=== PATIENT | female | born 1955 | race Caucasian/White ===

== ENCOUNTER 2022-02-11 13:45 | Outpatient (RCR) | payer MEDICARE, BC, SELFPAY | END 2022-06-10 14:45 | disposition home or self-care (01) | PROVIDERS: PCP Family Medicine; Visit Provider Family Medicine | DX: M25.552 Pain in left hip (principal); Z51.89 Encounter for other specified aftercare | CPT/HCPCS: 97110; 97140; 97162 ==

== ENCOUNTER 2023-01-08 12:01 | Observation (INO) | payer MEDICARE, BC, SELFPAY ==
[2023-01-08] VITALS (8 sets, daily range): BP systolic 122–217; BP diastolic 74–113; PULSE 70–78; RESP 16–18; TEMP 36.1–36.8; O2SAT 98–99; BMI 23.0; BMI 23.9
--- NOTE | 2023-01-08 12:44 | CRLHL7_ITS ---
For Patients: As a result of the Cures Act, medical imaging exams and procedure reports are released immediately into your electronic medical record. You may view this report before your referring provider. If you have questions, please contact your health care provider. INDICATION: Chest pain, not otherwise described. TECHNIQUE: Two views COMPARISON: 11/05/2020. FINDINGS: Patient positioning: The patient is not rotated. Adequate inspiration. Heart and mediastinum: New double right heart border which may indicate left atrial enlargement in this patient who is status post mitral valve replacement. This can be assessed with greater accuracy with echocardiography. Lungs and pleural spaces: Upper lobe pulmonary venous diversion and diffuse bilateral reticular opacities consistent with interstitial edema indicative of congestive heart failure. Small bilateral pleural effusions. Bones and soft tissues: No acute findings. Clustered hemostatic surgical clips at the level of the suprasternal notch are again noted suggesting a prior thyroidectomy, for example. Please correlate with the patient`s surgical history. IMPRESSION: 1. Findings consistent with congestive heart failure. 2. New double right heart border consistent with interval left atrial enlargement compared to 11/05/2020 in this patient is status post mitral valve replacement. Dictated by Scar Joel MD @ 01/08/2023 2:00:10 PM (Electronically Signed)
[2023-01-08] MEDS: carvediloL 6.25 MG TABLET 3.125 MG PO ×2 (13:00→21:08)
[2023-01-08 13:04] LABS: Basophils Percent Auto 0.8 % (0.0-3.0); Eosinophils Percent Auto 37.1 % (0.0-7.0); Hematocrit 35.1 % (33.0-51.0); Hemoglobin* 11.6 gm/dL (12.0-16.0); Immature Granulocytes Pct Auto 0.2 %; Lymphocytes Percent Auto 7.9 % (20-44); Mean Corpuscular HGB Conc 33 gm/dL (32-36); Mean Corpuscular Hemoglobin 31 pg (26-34); Mean Corpuscular Volume 93 fL (80-100); Monocytes Percent Auto 7.1 % (0.0-11.0); Neutrophils Percent Auto 46.9 % (42.0-72.0); Platelet Count* 303 K/uL (140-440); RDW Coefficient of Variation % 14.7 % (11.5-15.5); Red Blood Count 3.77 m/uL (4.00-5.20); White Blood Count* 15.87 K/uL (4.50-11.00)
[2023-01-08 13:18] LABS: Chloride* 93 mmol/L (96-114); Potassium* 4.1 mmol/L (3.6-5.1); Sodium* 127 mmol/L (135-149)
[2023-01-08 13:20] LABS: Slide Review Reflex Yes
[2023-01-08 13:21] LABS: Anion Gap 9 mEq/L (7-15); Blood Urea Nitrogen* 14 mg/dL (7-30); Carbon Dioxide* 25 mmol/L (20-32); Creatinine* 0.7 mg/dL (0.5-1.5); Est. Creatinine Clearance* 43.92; Estimated Glomerular Filt Rate 94 ml/min
[2023-01-08 13:22] LABS: Calcium* 8.9 mg/dL (8.4-10.6); Glucose* 106 mg/dL (60-115)
--- NOTE | 2023-01-08 13:22 | ED.GENADULT ---
HPI - General Adult General Date Seen: 01/08/23 Chief complaint: Hypertension Stated complaint: High BP, L hand numb Time Seen by Provider: 01/08/23 12:37 Source: patient Mode of arrival: ambulatory Limitations: no limitations History of Present Illness HPI narrative: Patient is a 67-year-old female with history of hypertension presenting to the emergency [place] for hypertension and hand numbness. She states her blood pressure was normal this morning movement she rejected this afternoon it was elevated quite a bit so she came to the emergency department to be evaluated. She also notes she has been having hand numbness bilaterally today. She states the numbness started while she was washing dishes at a religious event. States she has had hand numbness before but usually does not last this long. Between that and the hypertension she decided to come and get evaluated. Initially denied chest pain but when asked again later she states she has some very mild left upper chest pain. Denies shortness of breath, lightheadedness, dizziness, weakness, headache, abdominal pain, fevers, chills. Related Data Home Medications Medication Instructions Recorded Confirmed azathioprine 50 mg tablet 50 mg PO DAILY 01/08/23 01/08/23 carvedilol 3.125 mg tablet 3.125 mg PO BID 01/08/23 01/08/23 Allergies Allergy/AdvReac Type Severity Reaction Status Date / Time pantoprazole [From Protonix] Allergy Severe angioedema Verified 01/08/23 12:35 barium sulfate Allergy Intermediate Back Pain Verified 01/08/23 12:35 hydroxychloroquine Allergy Intermediate Verified 01/08/23 12:35 amlodipine Allergy Unknown Verified 01/08/23 12:35 chloroquine Allergy Unknown Verified 01/08/23 12:35 clonidine Allergy Unknown Verified 01/08/23 12:35 diltiazem Allergy Unknown Verified 01/08/23 12:35 hydralazine Allergy Unknown Verified 01/08/23 12:35 metoprolol Allergy Unknown Verified 01/08/23 12:35 mycophenolate mofetil Allergy Unknown Verified 01/08/23 12:35 [From CellCept] lisinopril Allergy Severe Anaphylaxis Uncoded 01/08/23 12:35 chlorthalidone Allergy Unknown Uncoded 01/08/23 12:35 Review of Systems Status of ROS: Reports: 10 or more systems reviewed and unremarkable except as noted in History and below PFSH PFS Social History Smoking Status: Never smoker Do you use any of these nicotine containing products: None Second hand tobacco smoke exposure: No How often do you have a drink containing alcohol: never How often do you have six or more drinks on one occasion: Never AUDIT-C Alcohol total score: 0 Non-prescribed substance use: denies use Exam Narrative: Exam Narrative: Const: Well-nourished, Well-developed, in no distress Eyes: PERRL, no conjunctival injection, and symmetrical lids HENT: Atraumatic external nose and ears. Moist mucous membranes. Neck: Symmetric, trachea midline, No thyromegaly. CVS: RRR, No murmurs or gallops. Peripheral pulses 2+ and equal in all extremities RESP: Unlabored respiratory effort. Clear to auscultation bilaterally. GI: Nontender/Nondistended, No rebound or guarding. MSK:Extremities w/o deformity, Normal Active ROM Skin: Warm, Dry. No rashes or lesions. Neuro: Normal Muscle tone, No focal neurological deficits. Psych: Awake, Alert, & Oriented x3. Appropriate mood and affect. Const: Vital Signs, click to edit/add: Vital Signs - 24 hr 01/08/23 12:23 01/08/23 14:29 01/08/23 14:31 Temperature 96.9 F L Pulse Rate [Pulse Oximeter] 73 Respiratory Rate 16 Blood Pressure 170/95 H 184/91 H Blood Pressure [Ri ght Upper Arm] 217/113 H Pulse Oximetry 99 Oxygen Delivery Me thod Room Air 01/08/23 15:02 Temperature Pulse Rate [Pulse Oximeter] Respiratory Rate Blood Pressure 192/111 H Blood Pressure [Ri ght Upper Arm] Pulse Oximetry Oxygen Delivery Me thod Course Vital Signs Vital signs: Initial Vital Signs Temperature 96.9 F L 01/08/23 12:23 Temperature Source Temporal Artery Scan 01/08/23 12:23 Pulse Rate 73 01/08/23 12:23 Respiratory Rate 16 01/08/23 12:23 Blood Pressure 217/113 H 01/08/23 12:23 Blood Pressure Mean 147 H 01/08/23 12:23 Blood Pressure Position Sitting 01/08/23 12:23 Pulse Oximetry 99 01/08/23 12:23 Oxygen Delivery Method Room Air 01/08/23 12:23 Vital Signs Temperature 96.9 F L 01/08/23 12:23 Pulse Rate 73 01/08/23 12:23 Respiratory Rate 16 01/08/23 12:23 Blood Pressure 217/113 H 01/08/23 12:23 Pulse Oximetry 99 01/08/23 12:23 Oxygen Delivery Method Room Air 01/08/23 12:23 Temperature 96.9 F L 01/08/23 12:23 Pulse Rate 73 01/08/23 12:23 Respiratory Rate 16 01/08/23 12:23 Blood Pressure 192/111 H 01/08/23 15:02 Pulse Oximetry 99 01/08/23 12:23 Oxygen Delivery Method Room Air 01/08/23 12:23 Medications Administered Medications: Discontinued Medications Generic Name Dose Route Start Last Admin Trade Name Anil PRN Reason Stop Dose Admin Carvedilol 3.125 mg 01/08/23 13:00 01/08/23 13:00 Carvedilol 6.25 Mg Tablet PO 01/08/23 13:01 3.125 mg ONCE ONE Administration Meclizine HCl 25 mg 01/08/23 12:26 01/08/23 13:00 Meclizine Hcl 25 Mg Tablet PO 01/08/23 12:27 Not Given ONCE ONE Medical Decision Making MDM Narrative Medical decision making narrative: Patient is a 67-year-old female presenting for bilateral hand numbness and hypertension. She also admits to some mild chest pain starts when she got to the emergency department. States the hand numbness started while she was washing dishes and is improving. She has had issues with hand numbness in the past. Based on the description does sound more like possible carpal tunnel issue. Do not think it is stroke related. She is hypertensive here in [place] he has a chest pain will do a cardiac workup. EKG shows no concerning abnormalities. CBC is elevated 15. She does have a history of lupus and was previously on prednisone but finished taking it in October. Unsure what her baseline white blood cell count is. Her CMP does show a solid 127. This is not seen to be the cause of her symptoms and she has issues with low sodium in the past. Chest x-ray shows possible pulmonary edema which could be caused by CHF. She does have a history of mitral valve replacements is not currently on any diuretics. Troponins elevated at 0.12. Chest pain again is very mild and no signs of a STEMI on EKG. This could be demand ischemia from her possible CHF. I spoke to the hospitalist and they accepted her for admission Lab Data Labs: Lab Results 01/08/23 Range/Units 12:57 WBC 15.87 H (4.50-11.00) K/uL RBC 3.77 L (4.00-5.20) m/uL Hgb 11.6 L (12.0-16.0) gm/dL Hct 35.1 (33.0-51.0) % MCV 93 (80-100) fL MCH 31 (26-34) pg MCHC 33 (32-36) gm/dL RDW Coeff of [place] 14.7 (11.5-15.5) % Plt Count 303 (140-440) K/uL Neut % (Auto) 46.9 (42.0-72.0) % Lymph % (Auto) 7.9 L (20-44) % [place] % (Auto) 7.1 (0.0-11.0) % Eos % (Auto) 37.1 H (0.0-7.0) % Baso % (Auto) 0.8 (0.0-3.0) % Neut # (Auto) 7.40 H (1.7-7.0) K/uL Lymph # (Auto) 1.30 (0.90-2.90) K/uL [place] # (Auto) 1.10 H (0.00-0.90) K/UL Eos # (Auto) 5.90 H (0.00-0.50) K/uL Baso # (Auto) 0.10 (0.00-0.30) K/uL Abs Immat Gran (auto) 0.00 (0.00-0.30) K/uL Imm/Tot Granulo (auto) 0.2 % Diff Slide Review (Acceptable) Sodium 127 L (135-149) mmol/L Potassium 4.1 (3.6-5.1) mmol/L Chloride 93 L (96-114) mmol/L Carbon Dioxide 25 (20-32) mmol/L Anion Gap 9 (7-15) mEq/L BUN 14 (7-30) mg/dL Creatinine 0.7 (0.5-1.5) mg/dL Estimated Creat Clear 43.92 Estimated GFR 94 ml/min Glucose 106 (60-115) mg/dL Calcium 8.9 (8.4-10.6) mg/dL Troponin I 0.12 H* (0.01-0.04) ng/mL Imaging Data Chest x-ray: Radiologist's impression: 1. Findings consistent with congestive heart failure. 2. New double right heart border consistent with interval left atrial enlargement compared to 11/05/2020 in this patient is status post mitral valve replacement. Dictated by Scar Joel MD @ 01/08/2023 2:00:10 PM ECG Data Attestation: I personally reviewed and interpreted this ECG as follows: Prior ECG tracings: not available for review Interpretation: Who normal sinus rhythm with a rate of 70 beats per minute, normal intervals, normal axis, no ST or T-wave abnormalities Discharge Plan Discharge Clinical Impression: Elevated troponin Patient Disposition: Admitted As Observation Discharge Location: [facility] Condition: Stable
[2023-01-08 13:36] LABS: Troponin I* 0.12 ng/mL (0.01-0.04)
--- NOTE | 2023-01-08 16:34 | CRLHL7_ITS ---
For Patients: As a result of the Century Cures Act, medical imaging exams and procedure reports are released immediately into your electronic medical record. You may view this report before your referring provider. If you have questions, please contact your health care provider. INDICATION: Left hand numbness. TECHNIQUE: CT of the head without contrast. Coronal and sagittal reformats are included. COMPARISON: None. FINDINGS: No CT evidence of acute cortical infarct. No loss of barragan white matter differentiation. No hyperdense vessels to suggest intracranial thrombus. No acute intracranial hemorrhage. No mass effect or midline shift. No hydrocephalus or extra-axial collections. Patchy white matter hypoattenuation, typical for chronic microvascular ischemic change. 5 millimeter partially calcified extra-axial mass along the right posterior superior temporal convexity, compatible with a meningioma. No acute osseous abnormalities. Moderate ethmoid/maxillary sinus mucosal thickening. Paranasal sinuses and mastoid air cells are otherwise clear. Normal soft tissues. IMPRESSION: 1. No CT evidence of acute cortical infarct. No acute intracranial hemorrhage. No other acute intracranial findings. 2. A tiny meningioma along the right posterior superior temporal convexity. Please note that all CT scans at this facility use dose modulation, iterative reconstruction, and/or weight-based dosing when appropriate to reduce radiation dose to as low as reasonably achievable. Dictated by Joni Espinoza MD @ 01/08/2023 5:52:34 PM (Electronically Signed)
[2023-01-08] MEDS: TORSEMIDE 20 MG TABLET PO (16:38)
[2023-01-08] MEDS: POTASSIUM BICARB 25 MEQ EFFERVESCENT TAB PO (16:38)
[2023-01-08 17:23] LABS: Troponin I* 0.12 ng/mL (0.01-0.04)
--- NOTE | 2023-01-08 18:05 | PC.NURSE ---
Shift Summary 15-19: Patient pleasant and cooperative. BP elevated@ admission. following echo patient c/o left arm numbness and chest feeling funny, tele shows NSR. updated, new orders for trop and head CT. Independent in room, up in [place] walking with staff SBA in case patient becomes symptomatic.
--- NOTE | 2023-01-08 19:28 | P.IMHP_ITS ---
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 Patient reports that she has had elevated blood pressures. This has been a longstanding problem for her. She is unfortunately also had labile blood pressures and with blood pressure medications has been hypotensive. She was seen recently by her lead operator who noted a range of blood pressures from 207/108 to 91/53. She has been on carvedilol for treatment of blood pressure. Today her blood pressures were quite high with systolics over 200 again. She is also noted on and off hand numbness. It occurred today again. Involve the left hand more than the right hand. She thinks that involved all the fingers of her hand. As I am seeing her now she reports her hands are relatively normal in sensation and motion. She did not have arm numbness or pain in arms or legs or associated chest pain or neck pain or headache. She tells me that she has had hand numbness on and off occurring less than weekly. No obvious trigger for thi s. Seems to affect both hands. She has not had a fever. She does note that recently she has had some increase in exertional dyspnea without exertional chest pain. She has hyponatremia. This has been a problem for in the past attributable to chlorthalidone treatment so chlorthalidone was discontinued months ago. She has says her sodiums have been normal since then until today. She reports she did drink a lot of water today. Review of Systems Narrative: She reports no fever, cough, cold symptoms, chest pain, palpitations, syncope, nausea, vomiting, diarrhea, abdominal pain, urinary problems, extremity edema. [facility] Medical History (Updated 01/08/23 @ 19:51 by Rich Lindsay MD) FHx: total abdominal hysterectomy and bilateral salpingo-oophorectomy ?Z84.2 - Family history of other diseases of the genitourinary system (ICD- 10) Immunocompromised ?D84.9 - Immunodeficiency, unspecified (ICD-10) Hypertension ?I10 - Essential (primary) hypertension (ICD-10) Lupus nephritis ?M32.14 - Glomerular disease in systemic lupus erythematosus (ICD-10) Endocarditis ?I38 - Endocarditis, valve unspecified (ICD-10) Heart failure with preserved ejection fraction ?I50.30 - Unspecified diastolic (congestive) heart failure (ICD-10) Hyponatremia ?E87.1 - Hypo-osmolality and hyponatremia (ICD-10) Surgical History (Updated 01/08/23 @ 19:41 by Rich Lindsay MD) H/O mitral valve replacement ?Z95.2 - Presence of prosthetic heart valve (ICD-10) Family History (Updated 01/08/23 @ 19:42 by Rich Lindsay MD) Brother Diabetes High blood pressure Prostate cancer Father Diabetes Heart disease Sister High blood pressure Social History (Updated 01/08/23 @ 19:46 by Rich Lindsay MD) Narrative: Patient reports sister Latonya and brother ron of are healthcare power of trust and estates attorney. Code status is now DNR. She does not smoke. She does not drink alcohol. What is your current living situation?: I presently have a place to live Problems where you live: no known problems Problems where you live details: N/A In the past 12 months, utilities in danger of being shut off: no In past 12 months, lack of transportation kept you from medical appts, meetings, work, or getting things needed for daily living: no In the past 12 mos, have been you worried that your food would run out before you had money to buy more?: never true In the past 12 mos, the food you bought just didn't last and you didn't have money to buy more?: never true Highest level of school completed/degree received: Master's degree Smoking Status: Never smoker Do you use any of these nicotine containing products: None Second hand tobacco smoke exposure: No How often do you have a drink containing alcohol: never How often do you have six or more drinks on one occasion: Never AUDIT-C Alcohol total score: 0 Non-prescribed substance use: denies use Caffeine: No How often does anyone, including family, friends and others, physically hurt you : never How often does anyone, including family, friends and others, insult or talk down to you: never How often does anyone, including family, friends and others, threaten you with harm: never How often does anyone, including family, friends and others, scream or curse at you: never service: No Meds Home Medications and Allergies Home Medications Medication Instructions Recorded Confirmed Type azathioprine 50 mg tablet 50 mg PO DAILY 01/08/23 01/08/23 History carvedilol 3.125 mg tablet 3.125 mg PO BID 01/08/23 01/08/23 History Allergies Allergy/AdvReac Type Severity Reaction Status Date / Time pantoprazole [From Protonix] Allergy Severe angioedema Verified 01/08/23 12:35 barium sulfate Allergy Intermediate Back Pain Verified 01/08/23 12:35 hydroxychloroquine Allergy Intermediate Verified 01/08/23 12:35 amlodipine Allergy Unknown Verified 01/08/23 12:35 chloroquine Allergy Unknown Verified 01/08/23 12:35 clonidine Allergy Unknown Verified 01/08/23 12:35 diltiazem Allergy Unknown Verified 01/08/23 12:35 hydralazine Allergy Unknown Verified 01/08/23 12:35 metoprolol Allergy Unknown Verified 01/08/23 12:35 mycophenolate mofetil Allergy Unknown Verified 01/08/23 12:35 [From CellCept] lisinopril Allergy Severe Anaphylaxis Uncoded 01/08/23 12:35 chlorthalidone Allergy Unknown Uncoded 01/08/23 12:35 Exam Narrative: Exam Narrative: She is alert and appears in no distress. Eyes normal. Pupils equal round react benjamin to light. Extraocular movements are full. No facial asymmetry. Oropharynx is normal. Neck is supple without mass or adenopathy. Respirations are clear to auscultation except for a rare basilar crackle. Cardiovascular: S1, S2, regular rate and rhythm. No murmur gallop or rub. Abdomen: Bowel sounds active. Abdomen is soft without tenderness or mass. Extremities without significant edema. Intact peripheral pulses. Examination of the upper extremity shows intact strength motion and sensation to soft touch bilaterally. Const: Vital Signs, click to edit/add: Vital Signs - 24 hr 01/08/23 12:23 01/08/23 14:29 01/08/23 14:31 Temperature 96.9 F L Pulse Rate Pulse Rate [Pulse Oximeter] 73 Pulse Rate [Right Radial] Respiratory Rate 16 Blood Pressure 170/95 H 184/91 H Blood Pressure [Le ft Arm] Blood Pressure [Ri ght Upper Arm] 217/113 H Pulse Oximetry 99 Oxygen Delivery Me thod Room Air 01/08/23 15:02 01/08/23 15:17 01/08/23 16:43 Temperature Pulse Rate 73 Pulse Rate [Pulse Oximeter] Pulse Rate [Right Radial] 70 Respiratory Rate 18 Blood Pressure 192/111 H Blood Pressure [Le ft Arm] 192/97 H Blood Pressure [Ri ght Upper Arm] Pulse Oximetry 98 Oxygen Delivery Me thod Room Air Documenting provider has reviewed patient's vital signs: yes Hospitalist - H&P: Result Labs Labs: Short CBC 01/08/23 Range/Units 12:57 WBC 15.87 H (4.50-11.00) K/uL Hgb 11.6 L (12.0-16.0) gm/dL Hct 35.1 (33.0-51.0) % Plt Count 303 (140-440) K/uL BMP 01/08/23 12:57 Sodium 127 L Potassium 4.1 Chloride 93 L Carbon Dioxide 25 BUN 14 Creatinine 0.7 Glucose 106 Calcium 8.9 Cardiac Enzymes 01/08/23 01/08/23 Range/Units 12:57 16:42 Troponin I 0.12 H* 0.12 H* (0.01-0.04) ng/mL Imaging CT scan - head: Radiologist's impression: INDICATION: Left hand numbness. TECHNIQUE: CT of the head without contrast. Coronal and sagittal reformats are included. COMPARISON: None. FINDINGS: No CT evidence of acute cortical infarct. No loss of barragan white matter differentiation. No hyperdense vessels to suggest intracranial thrombus. No acute intracranial hemorrhage. No mass effect or midline shift. No hydrocephalus or extra-axial collections. Patchy white matter hypoattenuation, typical for chronic microvascular ischemic change. 5 millimeter partially calcified extra-axial mass along the right posterior superior temporal convexity, compatible with a meningioma. No acute osseous abnormalities. Moderate ethmoid/maxillary sinus mucosal thickening. Paranasal sinuses and mastoid air cells are otherwise clear. Normal soft tissues. IMPRESSION: 1. No CT evidence of acute cortical infarct. No acute intracranial hemorrhage. No other acute intracranial findings. 2. A tiny meningioma along the right posterior superior temporal convexity. Chest x-ray: Radiologist's impression: INDICATION: Chest pain, not otherwise described. TECHNIQUE: Two views COMPARISON: 11/05/2020. FINDINGS: Patient positioning: The patient is not rotated. Adequate inspiration. Heart and mediastinum: New double right heart border which may indicate left atrial enlargement in this patient who is status post mitral valve replacement. This can be assessed with greater accuracy with echocardiography. Lungs and pleural spaces: Upper lobe pulmonary venous diversion and diffuse bilateral reticular opacities consistent with interstitial edema indicative of congestive heart failure. Small bilateral pleural effusions. Bones and soft tissues: No acute findings. Clustered hemostatic surgical clips at the level of the suprasternal notch are again noted suggesting a prior thyroidectomy, for example. Please correlate with the patient`s surgical history. IMPRESSION: 1. Findings consistent with congestive heart failure. 2. New double right heart border consistent with interval left atrial enlargement compared to 11/05/2020 in this patient is status post mitral valve replacement. Assessment and Plan Assessment and plan (1) Heart failure with preserved ejection fraction: Problem comment: Clinically appears to have mild heart failure. Chest x-ray shows bilateral pleural effusions. Mitral stenosis significantly worse than previously. Status: Acute (2) Mitral stenosis: Problem comment: Has gotten worse in the last 5 months. Needs Cardiology follow-up Status: Acute (3) Hyponatremia: Problem comment: This was a problem previously due to chlorthalidone. Status: Acute (4) Hypertension: Problem comment: Labile blood pressures difficult to manage. Will start torsemide for managing volume/heart failure and blood pressure. Status: Acute (5) Elevated troponin: Problem comment: Likely due to heart failure exacerbation. Status: Acute (6) Immunocompromised: Problem comment: On azathioprine for lupus nephritis hysterectomy Status: Acute (7) Lupus nephritis: Problem comment: Renal function stable. Continue azathioprine. Status: Acute Plan Patient is admitted to the hospital for management of heart failure, hyponatremia, labile blood pressures and mitral stenosis. Initiate diuretic with torsemide for blood pressure control and volume control. Follow sodiums. Will need Cardiology follow-up for mitral valve disease. Total time spent today is 85 minutes, 55 minutes in coordination of care discussing with patient and other providers ongoing evaluation management of heart failure and mitral valve disease
[2023-01-08] MEDS: SODIUM CHLORIDE 0.9 % (FLUSH) 10 ML SYRINGE 5 ML IVF (21:08)
[2023-01-08] MEDS: azaTHIOprine 50 MG TABLET PO (21:08)
[2023-01-09 03:00] VITALS: BP 158/91; PULSE 76; RESP 18; TEMP 36.6; O2SAT 98
[2023-01-09 06:40] LABS: Basophils Percent Auto 0.8 % (0.0-3.0); Eosinophils Percent Auto 44.2 % (0.0-7.0); Hematocrit 34.4 % (33.0-51.0); Hemoglobin* 11.5 gm/dL (12.0-16.0); Immature Granulocytes Pct Auto 0.2 %; Lymphocytes Percent Auto 11.4 % (20-44); Mean Corpuscular HGB Conc 33 gm/dL (32-36); Mean Corpuscular Hemoglobin 31 pg (26-34); Mean Corpuscular Volume 91 fL (80-100); Monocytes Percent Auto 8.4 % (0.0-11.0); Platelet Count* 320 K/uL (140-440); RDW Coefficient of Variation % 14.6 % (11.5-15.5); Red Blood Count 3.77 m/uL (4.00-5.20); White Blood Count* 11.39 K/uL (4.50-11.00)
[2023-01-09 06:42] LABS: Slide Review Reflex No
[2023-01-09 07:01] LABS: Chloride* 99 mmol/L (96-114); Potassium* 3.8 mmol/L (3.6-5.1); Sodium* 133 mmol/L (135-149)
[2023-01-09 07:04] LABS: Anion Gap 7 mEq/L (7-15); Blood Urea Nitrogen* 16 mg/dL (7-30); Calcium* 9.1 mg/dL (8.4-10.6); Carbon Dioxide* 27 mmol/L (20-32); Creatinine* 0.9 mg/dL (0.5-1.5); Est. Creatinine Clearance* 43.92; Estimated Glomerular Filt Rate 69 ml/min; Glucose* 95 mg/dL (60-115)
--- NOTE | 2023-01-09 07:05 | PC.NURSE ---
Shift note: BPs 120 to 150ies, no c/o pain throughout the night, no SOB, no c/o numbness in her upper extremities, moves independently.
[2023-01-09 07:13] LABS: Troponin I* 0.12 ng/mL (0.01-0.04)
[2023-01-09 07:29] VITALS: PULSE 71
[2023-01-09 08:05] VITALS: BP 158/91; PULSE 66; RESP 16; TEMP 36.6; O2SAT 98
[2023-01-09] MEDS: carvediloL 6.25 MG TABLET 3.125 MG PO (08:16)
[2023-01-09] MEDS: POTASSIUM CHLORIDE 10 MEQ CAPSULE ER PO (08:16)
[2023-01-09] MEDS: TORSEMIDE 5 MG TABLET 10 MG PO (08:16)
[2023-01-09] MEDS: SODIUM CHLORIDE 0.9 % (FLUSH) 10 ML SYRINGE 5 ML IVF (08:17)
[2023-01-09 11:06] VITALS: BP 115/74; PULSE 70; RESP 18; TEMP 36.5; O2SAT 99
[2023-01-09] MEDS: azaTHIOprine 50 MG TABLET PO (12:37)
--- NOTE | 2023-01-09 13:50 | P.DS_ITS ---
DS: Providers Provider Date Seen: 01/09/23 Date of admission: 01/08/23 15:15 Primary care physician: Elizabeth Carrion MD Admitting Clinician: Rich Lindsay MD Attending Physician on discharge: Rich Lindsay MD Date of Discharge: 01/09/23 DS: Diagnosis Discharge Diagnosis (1) Heart failure with preserved ejection fraction: Status: Acute Problem details: Clinically appears to have mild heart failure. Chest x-ray shows bilateral pleural effusions. Mitral stenosis significantly worse than previously. Improved with torsemide (2) Mitral stenosis: Status: Acute Problem details: Has gotten worse in the last 5 months. Needs Cardiology follow-up (3) Hyponatremia: Status: Acute Problem details: This was a problem previously due to chlorthalidone. Improved overnight with torsemide (4) Elevated troponin: Status: Acute Problem details: Likely due to heart failure exacerbation. Patient declines aspirin (5) Lupus nephritis: Status: Acute Problem details: Renal function stable. Continue azathioprine. (6) Immunocompromised: Status: Acute Problem details: On azathioprine for lupus nephritis hysterectomy (7) Hypertension: Status: Acute Problem details: Labile blood pressures difficult to manage. Blood pressure significantly improved with torsemide. 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 Patient reports that she has had ongoing problems with elevated blood pressures. She is unfortunately also had labile blood pressures and with blood pressure medications has been hypotensive. She was seen recently by her product marketing coordinator who noted a range of blood pressures from 207/108 to 91/53. She has been on carvedilol for treatment of blood pressure. Today her blood pressures were quite high with systolics over 200 again. She is also noted on and off hand numbness. It occurred today again. Involve the left hand more than the right hand. She thinks that involved all the fingers of her hand. As I am seeing her now she reports her hands are relatively normal in sensation and motion. She did not have arm numbness or pain in arms or legs or associated chest pain or neck pain or headache. She tells me that she has had hand numbness on and off occurring less than weekly. No obvious trigger for this. Seems to affect both hands. She has not had a fever. She does note that recently she has had some increase in exertional dyspnea without exertional chest pain. She has hyponatremia. This has been a problem for in the past attributable to chlorthalidone treatment so chlorthalidone was discontinued months ago. She has says her sodiums have been normal since then until today. She reports she did drink a lot of water today. During hospital stay she was treated with torsemide. With this her sodium improved, her blood pressure improved and her heart failure improved. For her hyponatremia she will need outpatient follow-up. Probably will not need any specific further intervention other than my recommendation that she not drink excessive water. Recheck basic metabolic panel in clinic later this week. Echocardiogram showed worsening of her mitral stenosis. She is recommended to get a transesophageal echo and outpatient follow-up with the valve clinic at [facility]. She will call [phone] to set up those appointments on Wednesday. Troponin at 0.12 on admission and the same this morning. No chest pain or EKG changes. Suspected to be secondary to heart failure. Patient declines aspirin. Status at Discharge Functional status at discharge: independent ambulation Overall status at discharge: patient is back to baseline Time Spent with Patient Time attestation: Total time spent providing and/or coordinating discharge services: Time spent: Greater than 30 minutes Exam Narrative: Exam Narrative: She is alert appears in no distress. Respirations are clear to auscultation. No basilar crackles. Cardiovascular: S1, S2, 1 to 2/6 diastolic murmur. Abdomen is soft without tenderness. Extremities without edema. Const: Vital Signs, click to edit/add: Vital Signs - 24 hr 01/08/23 14:29 01/08/23 14:31 01/08/23 15:02 Temperature Pulse Rate Pulse Rate [Right Radial] Respiratory Rate Blood Pressure 170/95 H 184/91 H 192/111 H Blood Pressure [Le ft Arm] Pulse Oximetry Oxygen Delivery Me thod 01/08/23 15:17 01/08/23 16:43 01/08/23 19:00 Temperature 97 F L Pulse Rate 73 Pulse Rate [Right Radial] 70 78 Respiratory Rate 18 18 Blood Pressure Blood Pressure [Le ft Arm] 192/97 H 133/86 Pulse Oximetry 98 98 Oxygen Delivery Me thod Room Air Room Air 01/08/23 23:00 01/08/23 23:00 01/09/23 03:00 Temperature 98.2 F 98 F Pulse Rate Pulse Rate [Right Radial] 78 74 76 Respiratory Rate 18 18 18 Blood Pressure Blood Pressure [Le ft Arm] 122/74 158/91 H Pulse Oximetry 98 98 Oxygen Delivery Me thod Room Air Room Air 01/09/23 07:29 01/09/23 08:05 01/09/23 11:06 Temperature 97.9 F 97.7 F Pulse Rate 71 Pulse Rate [Right Radial] 66 70 Respiratory Rate 16 18 Blood Pressure Blood Pressure [Le ft Arm] 158/91 H 115/74 Pulse Oximetry 98 99 Oxygen Delivery Me thod Room Air Room Air Documenting provider has reviewed patient's vital signs: yes DS: Data Data Completed and Pending Labs on day of discharge: Labs from last 24 hours 01/09/23 01/08/23 06:15 16:42 WBC 11.39 H RBC 3.77 L Hgb 11.5 L Hct 34.4 MCV 91 MCH 31 MCHC 33 RDW Coeff of [place] 14.6 Plt Count 320 Neut % (Auto) 35.0 L Lymph % (Auto) 11.4 L [place] % (Auto) 8.4 Eos % (Auto) 44.2 H Baso % (Auto) 0.8 Neut # (Auto) 4.00 Lymph # (Auto) 1.30 [place] # (Auto) 1.00 H Eos # (Auto) 5.00 H Baso # (Auto) 0.10 Abs Immat Gran (auto) 0.00 Imm/Tot Granulo (auto) 0.2 Sodium 133 L Potassium 3.8 Chloride 99 Carbon Dioxide 27 Anion Gap 7 BUN 16 Creatinine 0.9 Estimated Creat Clear 43.92 Estimated GFR 69 Glucose 95 Calcium 9.1 Troponin I 0.12 H* 0.12 H* Discharge Plan Discharge Disposition: Home, Self-Care Date of Admission: 01/08/23 15:15 Attending Provider on Discharge: Rich Lindsay Primary Care Provider: Elizabeth Carrion Condition: Stable Anticipated Discharge Date/Time: 01/09/23 13:24 Discharge Medications: New potassium chloride 10 mEq Capsule, Extended Release 10 meq PO DAILYWM Qty: 30 0RF torsemide 10 mg tablet 10 mg PO QAM Qty: 30 2RF Continued azathioprine 50 mg tablet 50 mg PO DAILY carvedilol 3.125 mg tablet 3.125 mg PO BID Discharge Orders: Discharge Order (Routine); Ordered 01/09/23 Ordered By: Rich Lindsay Patient Education: Potassium Chloride (By mouth), Torsemide (By mouth), Hypertension (DC) Additional Instructions: You need an appointment with the Heart valve Clinic. You also need a trans esophageal echo. Please call [facility], , Wednesday morning to arrange these appointments. If you have difficulty making these appointments please call to speak with Dr. Shan Combs's nurse. Activity Level: Activity as Tolerated Discharge Diet: Regular Follow Up Appointments: Elizabeth Carrion MD [Primary Care Provider] - (Follow-up in 5-6 days for appointment and basic metabolic panel) Forms: [employer] Info Instructions
--- NOTE | 2023-01-09 14:26 | PC.NURSE ---
Discharge: Patient pleasant and cooperative. Up independently walking in halls, HR stable and denies any neurologic changes, such as numb hands, throughout shift. Vitals stable and WNL. Denies pain/SOB. IV removed with catheter intact. Discharge instructions and follow up reviewed, questions answered as needed. New medications reviewed. Patient discharge @ 1425, ambulated out, sister to rock picker at door to transport home.
== END 2023-01-09 14:25 | disposition home or self-care (01) ==
LOC: ED 12:55 → MEDSURG 15:15
PROVIDERS: Admitting Provider Family Medicine; Emergency Provider Student in an Organized Health Care Education/Training Program; PCP Family Medicine; Visit Provider Family Medicine
DX: I50.31 Acute diastolic (congestive) heart failure (principal); R79.89 Other specified abnormal findings of blood chemistry; J90 Pleural effusion, not elsewhere classified; I05.0 Rheumatic mitral stenosis; E87.1 Hypo-osmolality and hyponatremia; I11.0 Hypertensive heart disease with heart failure; M32.14 Glomerular disease in systemic lupus erythematosus; R07.9 Chest pain, unspecified; D84.9 Immunodeficiency, unspecified; Z84.2 Family history of other diseases of the genitourinary system; Z95.2 Presence of prosthetic heart valve; Z66 Do not resuscitate
CPT/HCPCS: 36415; 70450; 71046; 80048; 80053; 81001; 84484; 85025; 87631; 93005; 93306; 99283; 99285; G0378; A9270; J7500

== ENCOUNTER 2023-01-11 10:37 | Emergency (ER) | payer MEDICARE, BC, SELFPAY ==
[2023-01-11] VITALS (63 sets, daily range): BP systolic 116–203; BP diastolic 68–105; PULSE 66–76; RESP 16; TEMP 36.1; O2SAT 95–100; BMI 21.5
--- NOTE | 2023-01-11 11:15 | ED_ITS ---
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 Patient reports that she has had ongoing problems with elevated blood pressures. She is unfortunately also had labile blood pressures and with blood pressure medications has been hypotensive. She was seen recently by her manager regional sales who noted a range of blood pressures from 207/108 to 91/53. She has been on carvedilol for treatment of blood pressure. Today her blood pressures were quite high with systolics over 200 again. She is also noted on and off hand numbness. It occurred today again. Involve the left hand more than the right hand. She thinks that involved all the fingers of her hand. As I am seeing her now she reports her hands are relatively normal in sensation and motion. She did not have arm numbness or pain in arms or legs or associated chest pain or neck pain or headache. She tells me that she has had hand numbness on and off occurring less than weekly. No obvious trigger for this. Seems to affect both hands. She has not had a fever. She does note that recently she has had some increase in exertional dyspnea without exertional chest pain. She has hyponatremia. This has been a problem for in the past attributable to chlorthalidone treatment so chlorthalidone was discontinued months ago. She has says her sodiums have been normal since then until today. She reports she did drink a lot of water today. During hospital stay she was treated with torsemide. With this her sodium improved, her blood pressure improved and her heart failure improved. For her hyponatremia she will need outpatient follow-up. Probably will not need any specific further intervention other than my recommendation that she not drink excessive water. Recheck basic metabolic panel in clinic later this week. Echocardiogram showed worsening of her mitral stenosis. She is recommended to get a transesophageal echo and outpatient follow-up with the valve clinic at [facility]. She will call [phone] to set up those appointments on Wednesday. Troponin at 0.12 on admission and the same this morning. No chest pain or EKG changes. Suspected to be secondary to heart failure. Patient declines aspirin. She was discharged from hospital on Wednesday morning. She had been in her usual state of health on Wednesday. She does have some chronic paresthesias affecting both her feet and toes that fluctuates. She she attributes this to some of her meds for lupus. She has not been taking the prescribed torsemide and potassium. She awoke from sleep at about 330 this morning. She is not sure why she woke up but she felt like something might have been wrong. Since then she has been having new paresthesias with numbness affecting her left arm, in particular the medial portion of her left upper arm. She also has a new numbness affecting her left medial thigh and a little bit in her left doherty. These are different than her normal chronic areas of numbness. No weakness. No slurred speech. No confusion. No ataxia. No headache. No other new symptoms. No pain in her arms or legs. No swelling. No redness. She recently went to her primary care clinic this morning to ask about the symptoms. Her blood pressure was normal but lower than her recent baseline clinic. Her provider sent her to the ER for further evaluation. She has thinks the symptoms are overall getting better but came here to the ER anyway. Related Data Home Medications Medication Instructions Recorded Confirmed azathioprine 50 mg tablet 50 mg PO DAILY 01/08/23 01/11/23 carvedilol 3.125 mg tablet 3.125 mg PO BID 01/08/23 01/11/23 Previous Rx's Medication Instructions Recorded potassium chloride 10 mEq 10 meq PO DAILYWM #30 caps 01/09/23 capsule,extended release torsemide 10 mg tablet 10 mg PO QAM #30 tabs 01/09/23 Allergies Allergy/AdvReac Type Severity Reaction Status Date / Time pantoprazole [From Protonix] Allergy Severe angioedema Verified 01/11/23 10:56 barium sulfate Allergy Intermediate Back Pain Verified 01/11/23 10:56 hydroxychloroquine Allergy Intermediate Verified 01/11/23 10:56 amlodipine Allergy Unknown Verified 01/11/23 10:56 chloroquine Allergy Unknown Verified 01/11/23 10:56 clonidine Allergy Unknown Verified 01/11/23 10:56 diltiazem Allergy Unknown Verified 01/11/23 10:56 hydralazine Allergy Unknown Verified 01/11/23 10:56 metoprolol Allergy Unknown Verified 01/11/23 10:56 mycophenolate mofetil Allergy Unknown Verified 01/11/23 10:56 [From CellCept] lisinopril Allergy Severe Anaphylaxis Uncoded 01/08/23 12:35 chlorthalidone Allergy Unknown Uncoded 01/08/23 12:35 PFSH PFSH Medical History (Updated 01/11/23 @ 13:44 by Brandan Ochoa MD) FHx: total abdominal hysterectomy and bilateral salpingo-oophorectomy ?Z84.2 - Family history of other diseases of the genitourinary system (ICD- 10) Immunocompromised ?D84.9 - Immunodeficiency, unspecified (ICD-10) Hypertension ?I10 - Essential (primary) hypertension (ICD-10) Lupus nephritis ?M32.14 - Glomerular disease in systemic lupus erythematosus (ICD-10) Endocarditis ?I38 - Endocarditis, valve unspecified (ICD-10) Heart failure with preserved ejection fraction ?I50.30 - Unspecified diastolic (congestive) heart failure (ICD-10) Hyponatremia ?E87.1 - Hypo-osmolality and hyponatremia (ICD-10) Surgical History (Updated 01/08/23 @ 19:41 by Rich Lindsay MD) H/O mitral valve replacement ?Z95.2 - Presence of prosthetic heart valve (ICD-10) Family History (Updated 01/08/23 @ 19:42 by Rich Lindsay MD) Brother Diabetes High blood pressure Prostate cancer Father Diabetes Heart disease Sister High blood pressure Social History (Updated 01/08/23 @ 19:46 by Rich Lindsay MD) Narrative: Patient reports sister Latonya and brother ron of are healthcare power of assistant attorney general. Code status is now DNR. She does not smoke. She does not drink alcohol. What is your current living situation?: I presently have a place to live Problems where you live: no known problems Problems where you live details: N/A In the past 12 months, utilities in danger of being shut off: no In past 12 months, lack of transportation kept you from medical appts, meetings, work, or getting things needed for daily living: no In the past 12 mos, have been you worried that your food would run out before you had money to buy more?: never true In the past 12 mos, the food you bought just didn't last and you didn't have money to buy more?: never true Highest level of school completed/degree received: Master's degree Smoking Status: Never smoker Do you use any of these nicotine containing products: None Second hand tobacco smoke exposure: No How often do you have a drink containing alcohol: never How often do you have six or more drinks on one occasion: Never AUDIT-C Alcohol total score: 0 Non-prescribed substance use: denies use Caffeine: No How often does anyone, including family, friends and others, physically hurt you : never How often does anyone, including family, friends and others, insult or talk down to you: never How often does anyone, including family, friends and others, threaten you with harm: never How often does anyone, including family, friends and others, scream or curse at you: never service: No Exam Narrative: Exam Narrative: Constitutional: Appears well-developed and well-nourished. Alert. Conversant. Non toxic. HENT: Head: Atraumatic. Nose: Nose normal. Mouth/Throat: Oral mucosa is clear and moist. no trismus. Pharynx normal. Tonsils symmetric. No tonsillar enlargement, erythema, or exudate. Eyes: Conjunctivae normal. EOM normal. Pupils equal, round, and reactive to light. No scleral icterus. Neck: Normal range of motion. Neck supple. No tracheal deviation present. No JVD. No bruits appreciated. Cardiovascular: Normal rate, regular rhythm. No gallop. No friction rub. No murmur heard. Symmetric radial artery pulses Pulmonary/Chest: Effort normal. No stridor. No respiratory distress. No wheezes. No rales. No rhonchi . No tenderness. Abdominal: Soft. Bowel sounds normal. No distension. No mass. No tenderness. No rebound. No guarding. Musculoskeletal: RUE: Normal range of motion. No tenderness. No deformity LUE: Normal range of motion. No tenderness. No deformity RLE: Normal range of motion. No edema. No tenderness. No deformity LLE: Normal range of motion. No edema. No tenderness. No deformity Lymph: No cervical adenopathy. Neurological: Mental status normal. Attention normal. Alert and oriented x3. GCS 15. Memory normal. Speech fluent. Cognition normal. Cranial Nerves intact II-XII except I did not formally test gag or visual acuity. EOMI. Palate elevates symmetrically and tongue protrudes in the midline. Strength: 5/5 trapezius on the right and left 5/5 deltoid on the right and left 5/5 biceps on the right and left 5/5 triceps on the right and left 5/5 senior integration developer on the right and left 5/5 thumb opposition on the right and le ft 5/5 finger abduction on the right and le ft 5/5 hip flexors (L3) on the right and le ft 5/5 quadriceps (L4) on the right and lef t 5/5 tibialis anterior on the right and l eft 5/5 EHL (L5) on the right and left 5/5 gastrocnemius (S1) on the right and left 5/5 hamstring on the right and left Patient has normal facial sensation in all 3 dermatomes of cranial nerve 5 bilaterally. She endorses some very patchy numbness affecting the right side of the road for her mouth and a little bit on her right tongue and lip. She endorses subjective paresthesias affecting her left medial upper arm but otherwise has intact sensory function bilaterally in C5, C6, C7, C8. Questionable tingling in the left T1 dermatome. She has chronic paresthesias affecting both of her toes and feet which are baseline. She has new paresthesias affecting the left medial thigh and left medial/anterior calf. No new sensory abnormality in the right lower extremity Sensation intact to light touch in Both lower extremities (L4-S1). Finger to nose and coordination normal. Gait normal. Aiac-iy-hneg is normal. Skin: Skin is warm and dry. No rash noted. No pallor. Normal capillary refill. Psychiatric: Normal mood. Normal affect. Const: Vital Signs, click to edit/add: Vital Signs - 24 hr 01/11/23 10:48 01/11/23 11:16 01/11/23 11:48 Temperature 96.9 F L Pulse Rate 69 Pulse Rate [Pulse Oximeter] 71 Respiratory Rate 16 Blood Pressure 166/89 H Blood Pressure [Le ft Upper Arm] 147/83 H Pulse Oximetry 100 98 100 Oxygen Delivery Me thod Room Air 01/11/23 11:49 01/11/23 12:00 01/11/23 12:09 Temperature Pulse Rate 69 66 68 Pulse Rate [Pulse Oximeter] Respiratory Rate Blood Pressure 147/86 H Blood Pressure [Le ft Upper Arm] Pulse Oximetry 99 97 100 Oxygen Delivery Me thod 01/11/23 12:10 01/11/23 12:15 01/11/23 12:17 Temperature Pulse Rate 68 66 67 Pulse Rate [Pulse Oximeter] Respiratory Rate Blood Pressure 172/84 H Blood Pressure [Le ft Upper Arm] Pulse Oximetry 99 98 99 Oxygen Delivery Me thod 01/11/23 13:15 01/11/23 13:17 01/11/23 13:18 Temperature Pulse Rate 73 72 68 Pulse Rate [Pulse Oximeter] Respiratory Rate Blood Pressure 193/104 H 190/95 H Blood Pressure [Le ft Upper Arm] Pulse Oximetry 98 100 100 Oxygen Delivery Me thod 01/11/23 13:30 01/11/23 13:32 01/11/23 13:45 Temperature Pulse Rate 73 73 74 Pulse Rate [Pulse Oximeter] Respiratory Rate Blood Pressure 180/88 H Blood Pressure [Le ft Upper Arm] Pulse Oximetry 98 100 98 Oxygen Delivery Me thod 01/11/23 13:47 01/11/23 14:00 01/11/23 14:02 Temperature Pulse Rate 74 70 73 Pulse Rate [Pulse Oximeter] Respiratory Rate Blood Pressure 182/90 H 193/90 H Blood Pressure [Le ft Upper Arm] Pulse Oximetry 99 99 100 Oxygen Delivery Me thod 01/11/23 14:15 01/11/23 14:17 01/11/23 14:30 Temperature Pulse Rate 72 71 69 Pulse Rate [Pulse Oximeter] Respiratory Rate Blood Pressure 187/97 H Blood Pressure [Le ft Upper Arm] Pulse Oximetry 100 100 100 Oxygen Delivery Me thod 01/11/23 14:32 01/11/23 14:37 01/11/23 14:38 Temperature Pulse Rate 68 68 70 Pulse Rate [Pulse Oximeter] Respiratory Rate Blood Pressure 203/94 H 201/105 H Blood Pressure [Le ft Upper Arm] Pulse Oximetry 97 99 96 Oxygen Delivery Me thod 01/11/23 14:45 01/11/23 14:47 01/11/23 15:00 Temperature Pulse Rate 70 71 68 Pulse Rate [Pulse Oximeter] Respiratory Rate Blood Pressure 190/95 H Blood Pressure [Le ft Upper Arm] Pulse Oximetry 100 100 97 Oxygen Delivery Me thod 01/11/23 15:02 01/11/23 15:15 01/11/23 15:17 Temperature Pulse Rate 70 75 71 Pulse Rate [Pulse Oximeter] Respiratory Rate Blood Pressure 189/98 H 181/92 H Blood Pressure [Le ft Upper Arm] Pulse Oximetry 100 98 100 Oxygen Delivery Me thod 01/11/23 15:30 01/11/23 15:32 01/11/23 15:45 Temperature Pulse Rate 71 71 69 Pulse Rate [Pulse Oximeter] Respiratory Rate Blood Pressure 184/95 H Blood Pressure [Le ft Upper Arm] Pulse Oximetry 99 99 98 Oxygen Delivery Me thod 01/11/23 15:47 01/11/23 16:02 01/11/23 16:17 Temperature Pulse Rate Pulse Rate [Pulse Oximeter] Respiratory Rate Blood Pressure 177/85 H 157/81 H 174/82 H Blood Pressure [Le ft Upper Arm] Pulse Oximetry Oxygen Delivery Me thod 01/11/23 16:32 01/11/23 17:17 01/11/23 17:32 Temperature Pulse Rate Pulse Rate [Pulse Oximeter] Respiratory Rate Blood Pressure 129/73 154/81 H 155/79 H Blood Pressure [Le ft Upper Arm] Pulse Oximetry Oxygen Delivery Me thod Course Course ED Course: Patient's room to stay room to. There was a wait for I could come to her care. I evaluated the patient and rapidly initiated a stroke team activation. She has patchy new left arm and left leg paresthesias, different from her chronic paresthesias which affect both of her feet. She was sent for stat noncontrast head CT. I initially ordered CT angiogram head neck but the patient reports a history of pain in her kidneys previous administration of CT contrast and would like to hold off. Discussed the patient with the stroke neurologist from [facility]. He would advise getting the CT scan if no bleed proceeding straight MRI. He thinks the true likelihood of stroke is low. If there is no infarct noted on MRI, then the patient would not require angiography. CT scan came back without bleed . MRI ordered. Vital Signs Vital signs: Initial Vital Signs Temperature 96.9 F L 01/11/23 10:48 Temperature Source Temporal Artery Scan 01/11/23 10:48 Pulse Rate 71 01/11/23 10:48 Respiratory Rate 16 01/11/23 10:48 Blood Pressure 147/83 H 01/11/23 10:48 Blood Pressure Mean 104 01/11/23 10:48 Blood Pressure Position Sitting 01/11/23 10:48 Pulse Oximetry 100 01/11/23 10:48 Oxygen Delivery Method Room Air 01/11/23 10:48 Vital Signs Temperature 96.9 F L 01/11/23 10:48 Pulse Rate 71 01/11/23 10:48 Respiratory Rate 16 01/11/23 10:48 Blood Pressure 147/83 H 01/11/23 10:48 Pulse Oximetry 100 01/11/23 10:48 Oxygen Delivery Method Room Air 01/11/23 10:48 Temperature 96.9 F L 01/11/23 10:48 Pulse Rate 69 01/11/23 15:45 Respiratory Rate 16 01/11/23 10:48 Blood Pressure 155/79 H 01/11/23 17:32 Pulse Oximetry 98 01/11/23 15:45 Oxygen Delivery Method Room Air 01/11/23 10:48 Medications Administered Medications: Discontinued Medications Generic Name Dose Route Start Last Admin Trade Name Luigiq PRN Reason Stop Dose Admin Aspirin 324 mg 01/11/23 14:15 01/11/23 14:13 Aspirin 81 Mg Tab.Chew PO 01/11/23 14:16 324 mg ONCE ONE Administration Medical Decision Making [facility] Narrative Medical decision making narrative: Very pleasant 67-year-old female with a complex past history presents to the ER today for patchy paresthesias involving her left upper arm, left leg, and a little bit on the right side of her mouth. Initial concern was for possible acute ischemic stroke. Stroke team activation was called. The patient was outside of the window for intravenous thrombolytics because symptoms began approximately 8 hours prior to evaluation here. Noncontrast head CT is normal. In discussion with Stroke Neurology they recommend brain MRI. Brain MRI shows multiple small subacute/acute infarcts. While the patient was here in the ER she felt like her paresthesias were gradually improving, but fluctuating a little bit. Concern with multiple small acute and subacute infarcts is that there could be embolic phenomena. She has a history of mitral valve endocarditis with 2 previous mitral valve replacement surgeries. Concern would be possible recurrent endocarditis. She has not had any fever or other the symptoms that she recalls in the past with endocarditis. She does have mild leukocytosis. In discussion with stroke neurologist would hold off on any empiric antibiotics until further workup can be completed. Plan will be to transfer to a hospital in [facility] where transesophageal echocardiography is available. Further workup shows mild hyponatremia with a sodium 134 but this is actually trending up compared to her sodium levels this weekend which were 133 and 127. Otherwise BMP is reassuring. Kidney function normal. Blood sugar normal. She was started on torsemide while in the hospital this weekend as well as potassium. Considered possible hypokalemia induced by her torsemide. Potassium is 4.0. CBC shows mild leukocytosis with a white count of 12.3, up from 11.3. No fever or other stigmata of endocarditis. Will hold off on antibiotics for now. She has mild anemia stable at 11.6. No symptoms of bleeding. While she was in the hospital this weekend she did have an abnormal troponin, thought to be due to CHF. Troponin has returned to normal today. She is not having any chest pain or other symptoms to suggest ACS as a cause for her left arm numbness. EKG shows sinus rhythm and no definitive ischemia. She is not febrile so although she has a mild leukocytosis, no clear evidence for infection. She does have a history of endocarditis. No clear symptoms of e ndocarditis at this time. Patient is placed on the [facility] system wait list for any bed with a neurology and cardiology capability to do a GLEA. She is boarding here in the ER pending transport. At about 7:00 p.m. we contacted [facility] again. She is 1. On the wait list. We anticipate she will likely receive a bed tonight. Lab Data Labs: Lab Results 01/11/23 Range/Units 11:28 WBC 12.34 H (4.50-11.00) K/uL RBC 3.68 L (4.00-5.20) m/uL Hgb 11.6 L (12.0-16.0) gm/dL Hct 34.4 (33.0-51.0) % MCV 94 (80-100) fL MCH 32 (26-34) pg MCHC 34 (32-36) gm/dL RDW Coeff of Floyd 14.8 (11.5-15.5) % Plt Count 322 (140-440) K/uL Neut % (Auto) 34.9 L (42.0-72.0) % Lymph % (Auto) 8.9 L (20-44) % Real % (Auto) 8.8 (0.0-11.0) % Eos % (Auto) 46.4 H (0.0-7.0) % Baso % (Auto) 0.8 (0.0-3.0) % Neut # (Auto) 4.30 (1.7-7.0) K/uL Lymph # (Auto) 1.10 (0.90-2.90) K/uL Real # (Auto) 1.10 H (0.00-0.90) K/UL Eos # (Auto) 5.70 H (0.00-0.50) K/uL Baso # (Auto) 0.10 (0.00-0.30) K/uL Abs Immat Gran (auto) 0.00 (0.00-0.30) K/uL Imm/Tot Granulo (auto) 0.2 % Diff Slide Review Acceptable Review (Acceptable) INR 0.96 (0.91-1.10) APTT 33 (23-33) Seconds Sodium 134 L (135-149) mmol/L Potassium 4.0 (3.6-5.1) mmol/L Chloride 100 (96-114) mmol/L Carbon Dioxide 25 (20-32) mmol/L Anion Gap 9 (7-15) mEq/L BUN 22 (7-30) mg/dL Creatinine 0.9 (0.5-1.5) mg/dL Estimated Creat Clear 45.85 Estimated GFR 69 ml/min Glucose 101 (60-115) mg/dL Calcium 9.2 (8.4-10.6) mg/dL Troponin I 0.04 (0.01-0.04) ng/mL Imaging Data CT scan - head: Attestation: I have reviewed the pertinent imaging results. Radiologist's impression: IMPRESSION: Involutional changes. No acute-appearing findings. A small calcified meningioma seen in the right posterior temporal region measuring about 9 millimeters, unchanged MRI Brain: Attestation: I have reviewed the pertinent imaging results. Radiologist's impression: Impression: 1. Scattered punctate acute/subacute infarcts involving the bilateral cerebral hemispheres, right caudate head and bilateral cerebellum. 2. Numerous peripheral predominant chronic micro hemorrhages. Differential considerations would include sequela of amyloid microangiopathy. 3. Small right anterior frontal lobe encephalomalacia and gliosis. ECG Data Attestation: I personally reviewed and interpreted this ECG as follows: Interpretation: Atrial rhythm. Unusual P axis could represent possible ectopic atrial rhythm or possibly atrial enlargement from mitral valve MT reviewed replacement. Rate 69. 162 QRS axis normal axis. No pathologic Q-waves. ST segment/T wave: No ST segment elevation or depression. QTc: 426 Discharge Plan Discharge Clinical Impression: Stroke Prescriptions: No Action azathioprine 50 mg tablet 50 mg PO DAILY carvedilol 3.125 mg tablet 3.125 mg PO BID potassium chloride 10 mEq Capsule, Extended Release 10 meq PO DAILYWM Qty: 30 0RF torsemide 10 mg tablet 10 mg PO QAM Qty: 30 2RF Follow Up/Referrals: Elizabeth Carrion MD [Primary Care Provider] -
--- NOTE | 2023-01-11 11:16 | CRLHL7_ITS ---
For Patients: As a result of the Century Cures Act, medical imaging exams and procedure reports are released immediately into your electronic medical record. You may view this report before your referring provider. If you have questions, please contact your health care provider. INDICATION: Clinical signs and symptoms of an acute stroke COMPARISON: January 08, 2023 TECHNIQUE: CT examination of the head was performed as axial sections without intravenous contrast. Images were obtained from the vertex of the skull through the skull base. Please note that all CT scans at this facility use dose modulation, iterative reconstruction, and/or weight-based dosing when appropriate to reduce radiation dose to as low as reasonably achievable. FINDINGS: The brain shows no mass effect, hemorrhage or edema. A small calcified meningioma seen in the right posterior temporal region which was noted previously. There are involutional changes. There is [id number] cortical atrophy and there is mild to moderate white matter disease. There is no hydrocephalus. The visualized portions of the orbits are normal in appearance. The osseous structures are normal in appearance with no sign of abnormality in the skull base or calvarium. IMPRESSION: Involutional changes. No acute-appearing findings. A small calcified meningioma seen in the right posterior temporal region measuring about 9 millimeters, unchanged Please note that all CT scans at this facility use dose modulation, iterative reconstruction, and/or weight-based dosing when appropriate to reduce radiation dose to as low as reasonably achievable. Dictated by Oswaldo Trevizo MD @ 01/11/2023 11:44:45 AM (Electronically Signed)
[2023-01-11 11:34] LABS: Basophils Percent Auto 0.8 % (0.0-3.0); Eosinophils Percent Auto 46.4 % (0.0-7.0); Hematocrit 34.4 % (33.0-51.0); Hemoglobin* 11.6 gm/dL (12.0-16.0); Immature Granulocytes Pct Auto 0.2 %; Lymphocytes Percent Auto 8.9 % (20-44); Mean Corpuscular HGB Conc 34 gm/dL (32-36); Mean Corpuscular Hemoglobin 32 pg (26-34); Mean Corpuscular Volume 94 fL (80-100); Monocytes Percent Auto 8.8 % (0.0-11.0); Neutrophils Percent Auto 34.9 % (42.0-72.0); Platelet Count* 322 K/uL (140-440); RDW Coefficient of Variation % 14.8 % (11.5-15.5); Red Blood Count 3.68 m/uL (4.00-5.20); White Blood Count* 12.34 K/uL (4.50-11.00)
--- NOTE | 2023-01-11 11:39 | CRLHL7_ITS ---
For Patients: As a result of the Century Cures Act, medical imaging exams and procedure reports are released immediately into your electronic medical record. You may view this report before your referring provider. If you have questions, please contact your health care provider. Indication: Left arm and leg paresthesia. Technique: Multiplanar, multisequence MRI of the brain was performed without intravenous contrast. Comparison: CT head 01/08/2023. Findings: Mild thinning of the corpus callosum. The pituitary and clivus appear intact. Mild degenerative change visualized upper cervical spine. Multiple punctate foci of restricted diffusion identified within the left frontal and parietal lobes in addition to the right parietal lobe and caudate nucleus regions. Additional small foci of restricted diffusion within the cerebellum bilaterally. Associated T2 FLAIR hyperintensity. The ventricles are proportionate to the cerebral sulci. The 4th ventricle appears midline. The basal cisterns appear patent. No abnormal extra-axial fluid collection identified. Mild parenchymal volume loss. Scattered T2 FLAIR hyperintense foci within the subcortical and periventricular white matter, favored to represent chronic ischemic microvascular disease. Small region of encephalomalacia and gliosis involving the right anterior frontal lobe. Multiple foci of peripheral predominance susceptibility artifact, compatible with micro hemorrhages. There is no intracranial mass, abnormal mass-effect or midline shift identified. Major intracranial vascular flow voids appear grossly intact. Both globes are preserved. Mild to moderate paranasal sinus mucosal disease. Impression: 1. Scattered punctate acute/subacute infarcts involving the bilateral cerebral hemispheres, right caudate head and bilateral cerebellum. 2. Numerous peripheral predominant chronic micro hemorrhages. Differential considerations would include sequela of amyloid microangiopathy. 3. Small right anterior frontal lobe encephalomalacia and gliosis. Dictated by Ankit Littlejohn MD @ 01/11/2023 1:26:57 PM (Electronically Signed)
[2023-01-11 11:50] LABS: Chloride* 100 mmol/L (96-114); Sodium* 134 mmol/L (135-149)
[2023-01-11 11:53] LABS: Anion Gap 9 mEq/L (7-15); Carbon Dioxide* 25 mmol/L (20-32); Creatinine* 0.9 mg/dL (0.5-1.5); Est. Creatinine Clearance* 45.85; Estimated Glomerular Filt Rate 69 ml/min
[2023-01-11 11:54] LABS: Blood Urea Nitrogen* 22 mg/dL (7-30); Calcium* 9.2 mg/dL (8.4-10.6); Glucose* 101 mg/dL (60-115); INR 0.96 (0.91-1.10); Partial Thromboplastin Time* 33 Seconds (23-33); Prothrombin Time 13.4 Seconds; Slide Review Reflex Yes
[2023-01-11 11:55] LABS: Slide Review Acceptable Review (Acceptable)
[2023-01-11 12:06] LABS: Troponin I* 0.04 ng/mL (0.01-0.04)
[2023-01-11] MEDS: ASPIRIN 81 MG TAB.CHEW 324 MG PO (14:13)
[2023-01-12] VITALS (12 sets, daily range): BP systolic 104–171; BP diastolic 69–87; PULSE 67–80; RESP 16–20; TEMP 36.9; O2SAT 97–100
--- NOTE | 2023-01-12 05:47 | ED.NURSE ---
Pt up to [facility] and walking around ER for exercise, denies any symptoms at this time.
--- NOTE | 2023-01-12 11:27 | CRLHL7_ITS ---
For Patients: As a result of the Century Cures Act, medical imaging exams and procedure reports are released immediately into your electronic medical record. You may view this report before your referring provider. If you have questions, please contact your health care provider. INDICATION: Acute stroke. TECHNIQUE: CTA neck with contrast bolus tracking, 3D angiographic rendering using maximum intensity projection (MIP) and images permanently archived. FINDINGS: There is marked tortuosity and redundancy of the internal carotid arteries. There is no significant carotid artery stenosis or dissection. There is no significant vertebral artery stenosis or dissection. The soft tissues of the neck are within normal limits. The cervical spine is in normal alignment. Degenerative changes are noted in the cervical spine. IMPRESSION: No significant carotid or vertebral artery stenosis or dissection. Please note that all CT scans at this facility use dose modulation, iterative reconstruction, and/or weight-based dosing when appropriate to reduce radiation dose to as low as reasonably achievable. Dictated by Sumeet Hightower MD @ 01/12/2023 12:32:15 PM (Electronically Signed)
--- NOTE | 2023-01-12 11:27 | CRLHL7_ITS ---
For Patients: As a result of the Century Cures Act, medical imaging exams and procedure reports are released immediately into your electronic medical record. You may view this report before your referring provider. If you have questions, please contact your health care provider. INDICATION: Acute stroke. TECHNIQUE: CTA head with contrast bolus tracking, 3D angiographic rendering using maximum intensity projection (MIP) and images permanently archived. FINDINGS: There is normal opacification of the intracranial vasculature. There is no large vessel occlusion. No aneurysm is identified. IMPRESSION: Unremarkable head CTA. No large vessel occlusion. Please note that all CT scans at this facility use dose modulation, iterative reconstruction, and/or weight-based dosing when appropriate to reduce radiation dose to as low as reasonably achievable. Dictated by Sumeet Hightower MD @ 01/12/2023 12:30:54 PM (Electronically Signed)
[2023-01-12] MEDS: 0.9 % SODIUM CHLORIDE 1000 ml 1,000 ML 500 ML IV (12:14)
== END 2023-01-12 13:52 | disposition home or self-care (01) ==
PROVIDERS: Emergency Medicine; Emergency Provider Family Medicine; PCP Family Medicine
DX: I63.9 Cerebral infarction, unspecified (principal)
CPT/HCPCS: 36415; 70450; 70496; 70498; 70551; 80048; 82962; 84484; 85025; 85610; 85730; 93005; 94761; 99285; G0508; A9270; J7030; Q9967

== ENCOUNTER 2023-08-27 10:00 | Outpatient (RCR) | payer MEDICARE, BC, SELFPAY | END 2023-12-25 23:59 | disposition home or self-care (01) | PROVIDERS: PCP Family Medicine; Visit Provider Family Medicine | DX: Z95.2 Presence of prosthetic heart valve (principal); Z74.09 Other reduced mobility; R29.3 Abnormal posture; R53.1 Weakness; R52 Pain, unspecified; M25.60 Stiffness of unspecified joint, not elsewhere classified; Z51.89 Encounter for other specified aftercare | CPT/HCPCS: 97110; 97140; 97162 ==